=== PATIENT | male | born 1985 | race Caucasian/White ===

== ENCOUNTER 2024-02-29 15:44 | Inpatient (IN) | payer OTHER ==
[2024-02-29 20:00] VITALS: BP 108/66; TEMP 97.2; O2SAT 96
[2024-02-29] MEDS ORDERED: MOM 30ML SUSPENSION UDC PO PRN (20:40)
[2024-02-29] MEDS ORDERED: ACETAMINOPHEN TAB 650MG DOSE (2X325MG) PO PRN (20:40)
[2024-02-29] MEDS ORDERED: MAALOX 30 ML SUSP *UDC PO PRN (20:40)
[2024-02-29] MEDS: DOCUSATE SODIUM 100MG CAPSULE PO SCH (21:00)
[2024-02-29 21:43] LABS: VENOUS BASE EXCESS -3.6 (-2.0-2.0); VENOUS HCO3 18.2 MMOL/L (23.0-27.0); VENOUS PARTIAL PRESSURE CO2 26.1 mmHg (38.0-50.0); VENOUS PARTIAL PRESSURE O2 176.8 mmHg (30.0-50.0); VENOUS PH 7.461 UNITS (7.330-7.430); VENOUS STANDARD HCO3 21.6 MMOL/L
[2024-02-29 21:58] LABS: HEMATOCRIT 45.9 % (42.0-52.0); HEMOGLOBIN 16.2 g/dl (13.5-17.5); MEAN CORPUSCULAR HEMOGLOBIN 31.5 pg (27.0-33.0); MEAN CORPUSCULAR HGB CONC 35.3 g/dl (32.0-36.5); MEAN CORPUSCULAR VOLUME 89.3 fl (80.0-96.0); RED BLOOD COUNT 5.14 10^6/uL (4.30-6.10); WHITE BLOOD COUNT 7.2 10^3/uL (4.0-10.0)
[2024-02-29 22:09] LABS: INR 1.06; PARTIAL THROMBOPLASTIN TIME 31.9 SECONDS (24.8-34.2); PROTHROMBIN TIME 13.4 SECONDS (12.5-14.5)
[2024-02-29 22:21] LABS: CK-MB VALUE MASS < 1.0 NG/ML (<3.6)
[2024-02-29 22:22] LABS: ALBUMIN 3.5 G/DL (3.2-5.2); ALKALINE PHOSPHATASE 101 U/L (46-116); ALT/SGPT 26 U/L (7.0-40); AST/SGOT 16 U/L (<34); BILIRUBIN,DIRECT 0.2 MG/DL (<0.4); BILIRUBIN,TOTAL 0.6 MG/DL (0.3-1.2); BLOOD UREA NITROGEN 9 MG/DL (9-23); CALCIUM LEVEL 8.7 MG/DL (8.5-10.1); CARBON DIOXIDE LEVEL 24 MMOL/L (20-31); CHLORIDE LEVEL 112 MMOL/L (98-107); CHOLESTEROL LEVEL 179 MG/DL (<200); CHOLESTEROL RISK RATIO 6.13 (<5); CPK CREATINE PHOSPHOKINASE 133 U/L (46-171); CREATININE FOR GFR 0.75 MG/DL (0.70-1.30); GLOMERULAR FILTRATION RATE > 60.0 (>60); GLUCOSE, FASTING 76 MG/DL (60-100); HDL CHOLESTEROL 29.2 MG/DL (>40); LDL CHOLESTEROL 130.2 MG/DL (<100); MB/CK RELATIVE INDEX 0.75 (< OR =4); NON-HDL-C 149.8 MG/DL; POTASSIUM SERUM 4.1 MMOL/L (3.5-5.1); SODIUM LEVEL 140 MMOL/L (136-145); TRIGLYCERIDES LEVEL 98 MG/DL (<150)
[2024-02-29 22:25] LABS: HEMOGLOBIN A1c 4.9 % (4.0-6.0)
[2024-02-29 22:28] LABS: PROCALCITONIN <0.04 ng/ml
[2024-02-29 22:36] LABS: PLATELET COUNT, AUTOMATED 39 10^3/uL (150-450)
[2024-02-29 23:00] VITALS: BP 113/56; TEMP 97.5; O2SAT 97; O2SAT 98
[2024-03-01] VITALS (28 sets, daily range): BP systolic 108–119; BP diastolic 53–62; TEMP 97.1–97.9; O2SAT 94–98
[2024-03-01] MEDS ORDERED: HOME MED LIST COMPLETE! XX SCH
[2024-03-01 02:25] LABS: BASO # 0.1 10^3/uL (0.0-0.2); BASO % 0.7 % (0.0-1.0); EOS # 0.2 10^3/uL (0.0-0.5); EOS % 2.7 % (0.0-3.0); LYMPH % 28.6 % (24.0-44.0); MONO # 0.4 10^3/uL (0.0-0.8); NEUTROPHILS # 4.4 10^3/uL (1.5-8.5); NEUTROPHILS % 61.7 % (36.0-66.0)
[2024-03-01 06:19] LABS: HEMATOCRIT 46.7 % (42.0-52.0); HEMOGLOBIN 16.1 g/dl (13.5-17.5); MEAN CORPUSCULAR HEMOGLOBIN 30.7 pg (27.0-33.0); MEAN CORPUSCULAR HGB CONC 34.5 g/dl (32.0-36.5); PLATELET COUNT, AUTOMATED 132 10^3/uL (150-450); RED BLOOD COUNT 5.25 10^6/uL (4.30-6.10); WHITE BLOOD COUNT 8.7 10^3/uL (4.0-10.0)
[2024-03-01 07:21] LABS: ALBUMIN 3.5 G/DL (3.2-5.2); ALKALINE PHOSPHATASE 102 U/L (46-116); ALT/SGPT 24 U/L (7.0-40); AST/SGOT 16 U/L (<34); BILIRUBIN,TOTAL 0.7 MG/DL (0.3-1.2); BLOOD UREA NITROGEN 9 MG/DL (9-23); CALCIUM LEVEL 8.7 MG/DL (8.5-10.1); CARBON DIOXIDE LEVEL 23 MMOL/L (20-31); CHLORIDE LEVEL 111 MMOL/L (98-107); CREATININE FOR GFR 0.83 MG/DL (0.70-1.30); GLOMERULAR FILTRATION RATE > 60.0 (>60); GLUCOSE, FASTING 81 MG/DL (60-100); POTASSIUM SERUM 3.9 MMOL/L (3.5-5.1); SODIUM LEVEL 141 MMOL/L (136-145); TOTAL PROTEIN 6.1 G/DL (5.7-8.2)
[2024-03-01 08:38] LABS: THYROID STIMULATING HORMONE 1.111 uIU/ML (0.55-4.78)
[2024-03-01] MEDS ORDERED: ENOXAPARIN 40MG/0.4ML SYRINGE (J1650 PER 10MG) SC SCH (09:00)
[2024-03-01] MEDS: APIXABAN 5 MG TAB (ELIQUIS) PO SCH (14:49)
[2024-03-01 21:37] LABS: HEMOGLOBIN A1c 4.9 % (4.0-6.0)
[2024-03-02] VITALS (9 sets, daily range): BP systolic 107–114; BP diastolic 55–60; TEMP 97–97.4; O2SAT 92–97
[2024-03-02 06:31] LABS: BASO # 0.1 10^3/uL (0.0-0.2); EOS # 0.2 10^3/uL (0.0-0.5); EOS % 2.4 % (0.0-3.0); HEMATOCRIT 43.3 % (42.0-52.0); HEMOGLOBIN 15.1 g/dl (13.5-17.5); LYMPH # 2.2 10^3/uL (1.5-5.0); LYMPH % 30.3 % (24.0-44.0); MEAN CORPUSCULAR HEMOGLOBIN 30.9 pg (27.0-33.0); MEAN CORPUSCULAR HGB CONC 34.9 g/dl (32.0-36.5); MEAN CORPUSCULAR VOLUME 88.5 fl (80.0-96.0); MONO # 0.6 10^3/uL (0.0-0.8); MONO % 8.7 % (2.0-8.0); NEUTROPHILS # 4.1 10^3/uL (1.5-8.5); NEUTROPHILS % 57.2 % (36.0-66.0); PLATELET COUNT, AUTOMATED 125 10^3/uL (150-450); RED BLOOD COUNT 4.89 10^6/uL (4.30-6.10); WHITE BLOOD COUNT 7.1 10^3/uL (4.0-10.0)
[2024-03-02 06:57] LABS: BLOOD UREA NITROGEN 15 MG/DL (9-23); CALCIUM LEVEL 8.7 MG/DL (8.5-10.1); CARBON DIOXIDE LEVEL 25 MMOL/L (20-31); CHLORIDE LEVEL 111 MMOL/L (98-107); CREATININE FOR GFR 0.91 MG/DL (0.70-1.30); GLOMERULAR FILTRATION RATE > 60.0 (>60); GLUCOSE, FASTING 91 MG/DL (60-100); MAGNESIUM LEVEL 1.9 MG/DL (1.8-2.4); POTASSIUM SERUM 4.2 MMOL/L (3.5-5.1); SODIUM LEVEL 139 MMOL/L (136-145)
[2024-03-02] MEDS ORDERED: OMEP-312 PO (11:04)
[2024-03-02] MEDS ORDERED: ELIQ5TAB PO (11:04)
[2024-03-03 09:27] LABS: DRVV SCREEN 41.5 SECONDS
[2024-03-03 09:43] LABS: PTT LUPUS TYPE ANTICOAG SCREEN 1.06 (0-1.20)
[2024-03-03 12:48] LABS: ANA SCREEN, IFA NEGATIVE (NEGATIVE)
[2024-03-03 18:17] LABS: HOMOCYST(E)INE SERUM 7.7 umol/L (<11.4)
[2024-03-04 01:33] LABS: CARDIOLIPIN IGA ANTIBODY < 2.0 APL-U/mL (<20.0); CARDIOLIPIN IGG ANTIBODY < 2.0 GPL-U/mL (<20.0); CARDIOLIPIN IGM ANTIBODY 4.5 MPL-U/mL (<20.0)
== END 2024-03-02 12:47 | disposition home or self-care (01) | DRG 47 ==
LOC: M PCU 19:54
PROVIDERS: ADMIT Internal Medicine; ATTEND Hospitalist
PROC: B246ZZZ Ultrasonography of Right and Left Heart (ICD-10-PCS; principal; 2024-03-01)
DX: G45.9 Transient cerebral ischemic attack, unspecified (principal); D69.6 Thrombocytopenia, unspecified; G40.209 Localization-related (focal) (partial) symptomatic epilepsy and epileptic syndromes with complex partial seizures, not intractable, without status epilepticus; I48.91 Unspecified atrial fibrillation; Q21.12 Patent foramen ovale; F10.10 Alcohol abuse, uncomplicated; R41.3 Other amnesia; F17.210 Nicotine dependence, cigarettes, uncomplicated